=== PATIENT | female | born 1975 | race Two or more races ===

== ENCOUNTER 2019-10-04 11:57 | Outpatient (CLI) | payer OTHER | END 2019-10-04 12:38 | disposition home or self-care (01) | LOC: LAB 11:57 | PROVIDERS: ATTEND General Practice | DX: J11.1 Influenza due to unidentified influenza virus with other respiratory manifestations (principal); R51 Headache; R53.81 Other malaise; Z11.59 Encounter for screening for other viral diseases; Z20.828 Contact with and (suspected) exposure to other viral communicable diseases ==

== ENCOUNTER 2024-05-15 10:38 | Outpatient (CLI) | payer OTHER | END 2024-05-15 10:51 | disposition home or self-care (01) | LOC: EDBD 10:38 → SONOGRAMA 10:38 | PROVIDERS: ATTEND Internal Medicine Gastroenterology | DX: R16.0 Hepatomegaly, not elsewhere classified (principal); R10.2 Pelvic and perineal pain; E83.89 Other disorders of mineral metabolism ==

== ENCOUNTER 2024-06-26 05:49 | Day surgery (SDC) | payer OTHER ==
[2024-06-21 12:58] VITALS: BP 143/85
[~2024-06-26] VITALS: Ht 162.6 cm; Wt 65.3 kg
[~2024-06-26 05:49] MED LIST: ADAPALENE45 G2; CLONAZEPAM1 MG PO; LEVO-T75 MCG PO; LEXAPRO5 MG PO
[2024-06-26] MEDS ORDERED: POVIDONE-IODINE 118 ML BOTT TOP ONE (09:51)
[2024-06-26] MEDS ORDERED: ONDANSETRON HCL 2 MG/ML VIAL ONE (13:31)
[2024-06-26] MEDS ORDERED: MORPHINE SULFATE 4 MG/ML VIAL IV PRN (14:30)
[2024-06-26] MEDS ORDERED: PROMETHAZINE HCL 50 MG/ML AMPUL IM ONE (14:30)
== END 2024-06-26 16:40 | disposition home or self-care (01) ==
LOC: CIR.AMB 05:49
PROVIDERS: ATTEND Obstetrics & Gynecology
DX: N84.0 Polyp of corpus uteri (principal); N93.8 Other specified abnormal uterine and vaginal bleeding; E03.8 Other specified hypothyroidism; F41.8 Other specified anxiety disorders